=== PATIENT | female | born 1970 | race Caucasian/White ===

== ENCOUNTER → 2016-11-07 | Outpatient (CLI) | payer OTHER ==
[~2016-11-07] MED LIST: ANUSOL-HC21 GM PR; PROTONIX PO; SYNTHROID PO; TYLOX 5/500 CAP1 CAP PO; ULTRAM PO
--- NOTE | ~2016-11-07 | MR113 ---
[facility] A Service of [facility] RADIOLOGY TEXT RESULTS PATIENT: ALIVIA GREEN LOCATION: [facility] : 66 UNIT #: [id number] AGE: [address]: WILL ARIAS MD SEX: F ORDER DR: [id number] [place] [id number] O MR#: [id number] Acc #: [id number] NAME: ALIVIA GREEN : 1970 SEX: F STUDY DATE/TIME: 11/07/2016 11:05 UNIT: [facility] ROOM: STUDY DESCRIPTION: MR Lumbar Wo Contrast Attending Physician: Will Arias M.D. Referring Physician: Will Arias M.D. Ordering Physician: Will Arias M.D. Primary Care Physician: Jase Bass M.D. [facility] REPORT This report is preliminary unless electronic signature is present. EXAM Lumbar MRI. HISTORY Chronic back pain for approximately 10 years with lumbar degenerative disc disease. COMPARISON 05/21/2014 TECHNIQUE Multiplanar imaging of the lumbar spine was performed with short and long TR. FINDINGS There is a mild lumbar dextroscoliosis. Degenerative changes are seen in all lumbar discs. At L1-2, the disc is desiccated without bulging or herniation. No significant progression is seen since previous exam. At L2-3, there is broad-based posterior disc bulging. There is also mild facet hypertrophy and this results in a [id number]-hd-aczuemfs central stenosis. The degree of canal narrowing is unchanged from the previous exam. Degeneration of the disc has progressed slightly with some reactive endplate changes now seen that were not present before. At L3-4, the disc is desiccated without bulging. Disc desiccation has worsened since the previous examination, but the canal and foramina are widely patent. At L4-5, there is disc space narrowing with central disc protrusion and minimal canal narrowing. This is unchanged. [facility] A Service of [facility] RADIOLOGY TEXT RESULTS PATIENT: ALIVIA GREEN LOCATION: [facility] : 66 UNIT #: [id number] AGE: [address]: WILL ARIAS MD SEX: F ORDER DR: At L5-S1, there is degenerative disc disease with broad-based posterior disc bulging and mild bilateral facet hypertrophy. The canal and foramina are widely patent and no progression is seen since the previous exam. The conus is normal. There is no evidence of marrow edema or paraspinous mass. IMPRESSION Degenerative disc disease throughout the lumbar spine as described above level by level, worse at L2-3. The L2-3 degenerative changes have progressed with reactive endplate changes now seen when compared to the previous exam in 2013, but the degree of canal narrowing has not changed significantly. Disc desiccation at L3-4 has also increased, but there is no significant bulging or herniation at this level. Dictated by... Azael Cardenas M.D. THIS IS AN ELECTRONICALLY VERIFIED REPORT Azael Cardenas M.D. at 11/09/2016 10:46 AM CHAPITO/alma TD: 11/08/2016 14:40 JOB #: [id number] MRI CENTER REPORT Page 1 of 1
== END | disposition home or self-care (01) ==
LOC: SMRI 10:34
DX: M51.36 Other intervertebral disc degeneration, lumbar region (principal)
CPT/HCPCS: 72148